=== PATIENT | female | born 1985 | race Caucasian/White ===

== ENCOUNTER 2017-04-28 15:08 | Emergency (ER) | payer OTHER ==
[2017-04-28 15:25] VITALS: BP 115/72; PULSE 73; TEMP 98.2; O2SAT 100
[2017-04-28 15:31] VITALS: RESP 16
--- NOTE | 2017-04-28 15:45 | C.PDOC ---
History Of Present Illness SORE THROAT, RUNNY NOSE GEN MYALGIA SINCE YEST. NO FEVER NVD. EXAM NAD NONTOXIC HEENT NOSE CLEAR; THROAT CLEAR LUNGS CTA B/L NO W/R/R REMAINDE RNEG MDM OFFERED PAIN RX, PT REFUSING. Time Seen by Provider: 04/28/17 15:24 History Per: Patient History/Exam Limitations: no limitations Onset/Duration Of Symptoms: Days (1) Current Symptoms Are (Timing): Still Present Sick Contacts (Context): None Past Medical History Reviewed: Historical Data, Nursing Documentation, Vital Signs Vital Signs: Last Vital Signs Temp 98.2 F 04/28/17 15:28 Pulse 73 04/28/17 15:28 Resp 16 04/28/17 15:28 BP 115/72 04/28/17 15:28 Pulse Ox 100 04/28/17 15:51 - Medical History PMH: Hypothyroidism - [facility] Procedures ANESTH INJECT-SPIN CANAL (07/28/13) MONITORING NOS (06/14/13) LOW CERVICAL (07/28/13) 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 Constitutional: Positive for: Other ((+) general myalgia). Negative for: Fever ENT: Positive for: Nose Discharge (runny nose), Throat Pain (sore throat) Gastrointestinal: Negative for: Nausea, Vomiting, Diarrhea Neurological: Negative for: Headache Physical Exam - Physical Exam Appears: Non-toxic, No Acute Distress Skin: Warm, Dry, No Rash Ear(s): Bilateral: Normal Nose: Normal Oral Mucosa: Moist Throat: Normal, No Erythema, No Exudate, No Drooling Neck: Normal, Normal ROM, Supple Respiratory: Normal Breath Sounds, No Rales, No Rhonchi, No Stridor, No Wheezing Extremity: Normal ROM, No Swelling Neurological/Psych: Oriented x3, Normal Speech ED Course And Treatment O2 Sat by Pulse Oximetry: 100 (RA) Pulse Ox Interpretation: Normal Medical Decision Making Medical Decision Making: NOTE: OFFERED PAIN RX, PT REFUSING. Disposition Counseled Patient/Family Regarding: Diagnosis, Need For Followup, Rx Given - Disposition Referrals: [facility] [Outside] [facility] [Outside] Disposition: HOME/ ROUTINE Disposition Time: 15:43 Condition: GOOD Prescriptions: Dexamethasone 12 mg PO ONCE #2 tab Ibuprofen [Motrin] 600 mg PO Q6 #30 tab Pseudoephedrine HCl [Sudafed 24 Hour] 240 mg PO DAILY PRN #1 unit PRN Reason: Sinus Symptoms Instructions: Upper Respiratory Infection (ED), Viral Syndrome (ED) Forms: Work Excuse - Clinical Impression Clinical Impression: Myalgia, Upper respiratory infection - Scribe Statement The provider has reviewed the documentation as recorded by the Bharatibjaclyn Saldaña Provider Attestation: All medical record entries made by the Bharatibjaclyn were at my direction and personally dictated by me. I have reviewed the chart and agree that the record accurately reflects my personal performance of the history, physical exam, medical decision making, and the department course for this patient. I have also personally directed, reviewed, and agree with the discharge instructions and disposition.
== END 2017-04-28 16:08 | disposition home or self-care (01) ==
LOC: C.ER 15:08
DX: J06.9 Acute upper respiratory infection, unspecified (principal); M79.1 Myalgia